=== PATIENT | male | born 1965 | race Caucasian/White ===

== ENCOUNTER 2016-07-30 07:53 | Emergency (ER) | payer OTHER ==
[~2016-07-30] VITALS: Ht 172.7 cm; Wt 80.2 kg
[~2016-07-30 07:53] MED LIST: BENTYL20 MG PO; EX-LAX MIL400 MG/5 M PO; FISH OIL CONC1000 M1 PO; HYDROCHLOROTHIA25 MG PO; HYDROCIL INSTA1 EAC1 PO; LISINOPRIL10 MG PO; LOPID600 M1 PO; LOPID600 MG PO; MAG-OX400 M1 PO; MYLANTA GAS MA125 MG PO; NAPROXEN500 M2 PO; NORVASC10 MG PO; PEPTO-BISM262 MG/15 PO; PRAVACHOL20 MG PO; PRILOSEC40 MG PO; ZESTRIL,PRINIVI10 MG PO; ZOCOR10 M1 PO; ZOVIRAX400 MG PO
[2016-07-30 08:48] LABS: HEMATOCRIT 44.6 % (38.0-50.0); MCHC 35.9 G/DL (30.0-36.0); MCV 94.9 FL (86-99); MEAN PLAT.VOLUME 10.2 uM^3 (9.0-12.4); PLATELET COUNT 212 K/uL (156-360); RBC DIS.WIDTH-CV 12.3 % (11.8-14.6); WHITE BLOOD COUNT 7.9 K/uL (4.1-10.2)
[2016-07-30 09:06] LABS: CHLORIDE 109 mEq/L (99-109); POTASSIUM 3.7 mEq/L (3.7-5.4); SODIUM 140 mEq/L (136-147)
[2016-07-30 09:08] LABS: GLUCOSE 84 mg/dL (70-99)
[2016-07-30 09:10] LABS: ANION GAP 8 MEQ/L (2-14); TOTAL BILIRUBIN 0.7 mg/dL (0.0-1.0)
[2016-07-30 09:12] LABS: GFR ESTIMATE (CALCULATED) > 59 mL/min/
[2016-07-30 09:13] LABS: UREA NITROGEN (BUN) 9 mg/dL (9-23)
[2016-07-30 09:31] LABS: ADD MIUA? YES; BILIRUBIN NEGATIVE; BLOOD NEGATIVE; COLOR YELLOW ((YELLOW)); GLUCOSE (STRIP) NEGATIVE; KETONES NEGATIVE; LEUKOCYTES NEGATIVE; NITRITE NEGATIVE; PROTEIN (STRIP) 30; SPECIFIC GRAVITY 1.024 (1.000-1.030)
[2016-07-30 09:36] LABS: ALKALINE PHOSPHATASE 73 IU/L (3-129)
[2016-07-30 09:44] LABS: BACTERIA RARE /HPF; CALCIUM OXALATE CRYSTALS 1+ /HPF; EPITHELIAL CELLS RARE /HPF; MUCUS 1+ /LPF; RED BLOOD CELLS 0-5 /HPF (0-5); UCUL ADDED? NO; WHITE BLOOD CELLS 0-5 /HPF (0-5)
[2016-07-30] MEDS ORDERED: ULTRAM50 MG PO (10:12)
[2016-07-30] MEDS ORDERED: MOTRIN800 MG PO (10:12)
[2016-07-30] MEDS ORDERED: BACTRIM,SEPT1 TABLET PO (10:12)
[2016-07-30 10:22] VITALS: BP 111/71
== END 2016-07-30 10:31 | disposition home or self-care (01) ==
LOC: EME 07:53
PROVIDERS: Nurse Practitioner Family
DX: N30.90 Cystitis, unspecified without hematuria (principal); K59.09 Other constipation; I10 Essential (primary) hypertension; E78.5 Hyperlipidemia, unspecified; K51.90 Ulcerative colitis, unspecified, without complications; Z87.442 Personal history of urinary calculi; F17.200 Nicotine dependence, unspecified, uncomplicated
CPT/HCPCS: 74176; 80053; 81003; 85027; 99281; 99284; J1885; J2405; J3010; J7030

== ENCOUNTER 2016-08-21 00:49 | Emergency (ER) | payer OTHER ==
[~2016-08-21] VITALS: Ht 172.7 cm; Wt 78.5 kg
[~2016-08-21 00:49] MED LIST changes: +BACTRIM,SEPT1 TABLET PO; +MOTRIN800 MG PO; +ULTRAM50 MG PO
[2016-08-21 00:51] VITALS: BP 148/11
[2016-08-21] MEDS ORDERED: NORCO 5/3251 TABLET PO (02:51)
[2016-08-22] MEDS ORDERED: MUPIROCIN15 GM TP (23:58)
[2016-08-22] MEDS ORDERED: KEFLEX500 MG PO (23:58)
[2016-08-22] MEDS ORDERED: PERCOCET 5/31 TABLET PO (23:58)
== END 2016-08-21 03:09 | disposition home or self-care (01) ==
LOC: EXP 00:49 → EME 00:49 → EXP 03:09
DX: T23.002A Burn of unspecified degree of left hand, unspecified site, initial encounter (principal); Z77.098 Contact with and (suspected) exposure to other hazardous, chiefly nonmedicinal, chemicals; Z87.442 Personal history of urinary calculi; F17.200 Nicotine dependence, unspecified, uncomplicated
CPT/HCPCS: 99281; 99285; J8540

== ENCOUNTER 2016-08-22 22:03 | Emergency (ER) | payer OTHER ==
[~2016-08-22] VITALS: Ht 172.7 cm; Wt 78.8 kg
[~2016-08-22 22:03] MED LIST changes: +NORCO 5/3251 TABLET PO
[2016-08-22] MEDS ORDERED: KEFLEX500 MG PO (23:58)
[2016-08-22] MEDS ORDERED: PERCOCET 5/31 TABLET PO (23:58)
[2016-08-22] MEDS ORDERED: MUPIROCIN15 GM TP (23:58)
[2016-08-23 00:24] VITALS: BP 122/90
== END 2016-08-23 01:19 | disposition home or self-care (01) ==
LOC: EME 22:03 → EXP 22:03
DX: M79.642 Pain in left hand (principal); T23.002D Burn of unspecified degree of left hand, unspecified site, subsequent encounter; K59.09 Other constipation; I10 Essential (primary) hypertension; E78.5 Hyperlipidemia, unspecified; F17.200 Nicotine dependence, unspecified, uncomplicated
CPT/HCPCS: 99281; 99284